=== PATIENT | female | born 1975 | race Caucasian/White ===

== ENCOUNTER 2020-07-15 12:43 | Outpatient (RCR) | payer MEDICAID, SELFPAY ==
--- NOTE | 2020-07-17 15:45 | MHC.PT.EP ---
[facility] [place] [facility] [place] [facility] [place] Office [address] Temo Ward [address] [phone] F: [phone] F: [phone] F: [phone] F: [phone] Physical Therapy Plan of Care Date of Evaluation: 07/15/20 Date of Surgery: N/A Diagnosis: Bursitis (shoulder) Assessment: The patient had an extension directional preference using a Itzel mechanical assessment. She has habits that put her in a flexed posture most of her day. The patient was educated regarding sitting posture, HEP of cervical retractions, and behavior modification to avoid agg factors. Pt has an empty end feel in shoulder mobility which supports she likely has cervical nerve root impingement to mid cervical spine Frequency and Duration: The patient will be seen 2x/week Short Term Goals: 1.Pt to able to demonstrate proper sitting posture with the use of a lumbar roll to decrease aggravating factors. 2.Pt to be able to demonstrate proper posture for common leisure activities such as crocheting and phone/tablet use. Prison Goals: 1. Pt to be able to return to normal PLOF without limiting pain. 2. Pt to be able to return to overhead reaching without pain or limitation. 3. Pt to be able to manage her pain with selected exercise and stretching regime. Treatment Plan: Modalities to reduce pain, spasms and effusion. Manual therapy to restore motion and function. Therapeutic exercise to improve strength and flexibility. Neuromuscular re-education for posture and balance. Therapeutic activities to return to functional activities of daily living. Please sign and return to therapist. Thank you for your referral.
== END 2020-09-11 13:23 | disposition other institution (70) ==
LOC: HO.PT 12:43
PROVIDERS: PCP Internal Medicine; Visit Provider Orthopaedic Surgery
DX: M75.52 Bursitis of left shoulder (principal)
CPT/HCPCS: 97110; 97112; 97161; 97535